=== PATIENT | female | born 1935 | race Two or more races ===

== ENCOUNTER 2024-06-15 04:14 | Inpatient (IN) | payer BC ==
[~2024-06-15] VITALS: Ht 165.1 cm; Wt 42.2 kg
[2024-06-15 07:05] LABS: CHLORIDE 101 mEq/L (98-107); SODIUM 135 mEq/L (136-145)
[2024-06-15 07:06] LABS: CALCIUM 9.3 mg/dL (8.7-10.4); CARBON DIOXIDE 26 mEq/L (21-32)
[2024-06-15 07:09] LABS: BASOPHILS % 0.5 % (0.0-2.0); HEMATOCRIT. 32.4 % (36.0-48.0); HEMOGLOBIN. 11.2 g/dL (12.0-16.0); LYMPHOCYTES % 9.7 % (20.0-50.0); MEAN CORPUSCULAR HEMOGLOBIN 32.3 pg (28.0-32.0); MEAN CORPUSCULAR HGB CONC 34.5 g/dL (31.0-37.0); MEAN CORPUSCULAR VOLUME 93.5 fL (81.0-99.0); MEAN PLATELET VOLUME 6.6 fl (7.4-10.4); NEUTROPHILS % 80.8 % (40.0-76.0); PLATELET 380 x1000/uL (130-400); RED BLOOD CELL COUNT 3.47 mill/uL (4.2-5.4); RED CELL DISTRIBUTION WIDTH 14.5 % (11.6-14.6)
[2024-06-15 07:11] LABS: CREATININE 0.5 mg/dL (0.6-1.0); GLUCOSE 107 mg/dL (70-105); UREA NITROGEN BLOOD 14 mg/dL (9-23)
[2024-06-15 07:12] LABS: TROPONIN I HIGH SENSITIVITY 13 ng/L (3.0-34)
[2024-06-15 07:13] LABS: ALANINE AMINOTRANSFERASE 18 IU/L (10-49); ASPARTATE AMINOTRANSFERASE 16 IU/L (<34); BILIRUBIN TOTAL 0.6 mg/dL (0.1-1.0); PROTEIN TOTAL 7.2 g/dL (6.0-8.3)
[2024-06-15 07:35] LABS: POTASSIUM 2.7 mEq/L (3.5-5.1)
[2024-06-15] MEDS ORDERED: POTASSIUM CHLORIDE 20MEQ TABLET SR PO ONE (08:30)
[2024-06-15] MEDS: SODIUM CHLORIDE 0.9% 1,000 ML IV ONE (09:20)
[2024-06-15] MEDS: KCL 20MEQ/100ML PREMIX 100 ML IV ONE (09:31)
[2024-06-15] MEDS: POTASSIUM CHLORIDE 20MEQ TABLET SR PO NR ×2 (10:57→13:00)
[2024-06-15] MEDS: MINERAL OIL ENEMA 133ML PR ONE (10:59)
[2024-06-15] MEDS ORDERED: ENOXAPARIN 40MG/0.4ML SYR SUBCUT SCH (12:30)
[2024-06-15] MEDS ORDERED: ACETAMINOPHEN 325MG TABLET PO PRN (12:30)
[2024-06-15] MEDS ORDERED: GUAIFENESIN 200MG/10ML SUGAR FREE UDC PO PRN (12:30)
[2024-06-15] MEDS ORDERED: MAGNESIUM/ALUMINUM HYDROXIDE/SIMETHICONE 30ML UDC PO PRN (12:30)
[2024-06-15] MEDS ORDERED: IPRATROPIUM/ALBUTEROL 0.5-3(2.5)MG/3ML NEB NEB PRN (12:30)
[2024-06-15] MEDS ORDERED: NITROGLYCERIN 0.4MG TABLET SL SL PRN (12:30)
[2024-06-15] MEDS: LOSARTAN 50 MG TABLET PO SCH (12:30)
[2024-06-15] MEDS ORDERED: DOCUSATE SODIUM 100MG CAPSULE PO PRN (12:30)
[2024-06-15] MEDS: NIFEDIPINE XL 60MG TAB PO SCH (12:38)
[2024-06-15] MEDS: ENOXAPARIN 30MG/0.3ML SYR SUBCUT SCH (15:59)
[2024-06-15 16:00] VITALS: BP 166/58; PULSE 60; RESP 20; TEMP 36.55848; O2SAT 96
[2024-06-15 16:52] LABS: IRON 35 ug/dL (50-170); TRIGLYCERIDE 84 mg/dL (0-150)
[2024-06-15 16:53] LABS: LDL CHOLESTEROL 74 mg/dL (5-100)
[2024-06-15 16:54] LABS: CHOLESTEROL 131 mg/dL (<200); HDL CHOLESTEROL 44 mg/dL (>65); TOTAL IRON BINDING CAPACITY 351 ug/dl (250-425)
[2024-06-15 16:57] LABS: FOLIC ACID (FOLATE) SERUM > 20.00 ng/mL (>5.38)
[2024-06-15 16:58] LABS: THYROID STIMULATING HORMONE 0.65 uIU/mL (0.55-4.78)
[2024-06-15 17:13] LABS: VITAMIN B12 SERUM > 2000 pg/mL (211-911)
[2024-06-15] MEDS ORDERED: POTASSIUM CHLORIDE 20 MEQ in DEXT 5% WATER 90 ML IV ONE (17:45)
[2024-06-15] MEDS ORDERED: CLON0.1T PO (18:12)
[2024-06-15] MEDS ORDERED: IBUP-1525 PO (18:12)
[2024-06-15] MEDS ORDERED: VALS160T28 PO (18:12)
[2024-06-15] MEDS ORDERED: MORP15TA8 PO (18:12)
[2024-06-15] MEDS ORDERED: ONDA-239 PO (18:12)
[2024-06-15 19:55] VITALS: PULSE 60; RESP 18; TEMP 36.55848; O2SAT 97
[2024-06-15] MEDS: FAMOTIDINE 20MG TABLET PO SCH (20:57)
[2024-06-15] MEDS: KCL 20MEQ/100ML PREMIX 100 ML IV NR (20:57)
[2024-06-15] MEDS ORDERED: ZOLPIDEM TARTRATE 5MG TABLET PO PRN (21:00)
[2024-06-15] MEDS: DEXT 5%/LACTATED RINGERS 1,000 ML IV SCH (21:00)
[2024-06-16] VITALS (8 sets, daily range): BP systolic 121–198; BP diastolic 68–83; PULSE 60–70; RESP 17–20; TEMP 35.0028–37.7808; O2SAT 95–99
[2024-06-16] MEDS: CLONIDINE 0.1MG TABLET PO PRN (06:27)
[2024-06-16 06:50] LABS: CHLORIDE 100 mEq/L (98-107); SODIUM 133 mEq/L (136-145)
[2024-06-16 06:52] LABS: CALCIUM 9.4 mg/dL (8.7-10.4); CARBON DIOXIDE 23 mEq/L (21-32)
[2024-06-16 06:54] LABS: BASOPHILS % 0.3 % (0.0-2.0); EOSINOPHILS % 0.1 % (0.0-5.0); HEMATOCRIT. 35.7 % (36.0-48.0); HEMOGLOBIN. 12.1 g/dL (12.0-16.0); LYMPHOCYTES % 12.8 % (20.0-50.0); MEAN CORPUSCULAR HEMOGLOBIN 31.5 pg (28.0-32.0); MEAN CORPUSCULAR HGB CONC 33.8 g/dL (31.0-37.0); MEAN CORPUSCULAR VOLUME 93.1 fL (81.0-99.0); MEAN PLATELET VOLUME 6.6 fl (7.4-10.4); MONOCYTES % 6.6 % (2.0-8.0); NEUTROPHILS % 80.2 % (40.0-76.0); PLATELET 444 x1000/uL (130-400); RED BLOOD CELL COUNT 3.84 mill/uL (4.2-5.4); RED CELL DISTRIBUTION WIDTH 14.3 % (11.6-14.6); WHITE BLOOD COUNT 9.8 x1000/uL (4.5-11.0)
[2024-06-16 06:57] LABS: CREATININE 0.5 mg/dL (0.6-1.0); GLUCOSE 128 mg/dL (70-105); UREA NITROGEN BLOOD 9 mg/dL (9-23)
[2024-06-16 06:58] LABS: ALANINE AMINOTRANSFERASE 16 IU/L (10-49)
[2024-06-16 06:59] LABS: ALBUMIN 3.9 g/dL (3.2-4.8); ASPARTATE AMINOTRANSFERASE 15 IU/L (<34); BILIRUBIN TOTAL 0.7 mg/dL (0.1-1.0); PHOSPHORUS 2.3 mg/dL (2.5-4.9); PROTEIN TOTAL 7.4 g/dL (6.0-8.3)
[2024-06-16] MEDS: ONDANSETRON HCL 4MG/2ML INJ IV PRN (07:25)
[2024-06-16 08:16] LABS: POTASSIUM 2.4 mEq/L (3.5-5.1)
[2024-06-16] MEDS ORDERED: POTASSIUM CHLORIDE 60 MEQ in DEXT 5% WATER 220 ML IV ONE (14:45)
[2024-06-16] MEDS: KCL 20MEQ/100ML X 2 FOR TOTAL KCL 40MEQ/200ML IV SCH (18:00)
[2024-06-16] MEDS: POTASSIUM CHLORIDE 20MEQ TABLET SR PO NR (18:07)
[2024-06-17] VITALS: BP_SYST 124; BP_DIAS 68; BP_DIAS 82; PULSE 62; RESP 17; TEMP 36.22512; O2SAT 99
[2024-06-17 04:00] VITALS: BP 120/60; PULSE 68; RESP 18; TEMP 36.55848; O2SAT 98
[2024-06-17 08:00] VITALS: BP 147/68; PULSE 70; RESP 18; RESP 20; TEMP 36.50292; O2SAT 97; O2SAT 99
[2024-06-17 11:14] LABS: CHLORIDE 97 mEq/L (98-107); SODIUM 132 mEq/L (136-145)
[2024-06-17 11:17] LABS: CARBON DIOXIDE 23 mEq/L (21-32)
[2024-06-17 11:22] LABS: CREATININE 0.5 mg/dL (0.6-1.0); GLUCOSE 141 mg/dL (70-105); UREA NITROGEN BLOOD 8 mg/dL (9-23)
[2024-06-17 11:24] LABS: PHOSPHORUS 1.5 mg/dL (2.5-4.9)
[2024-06-17] MEDS: ACETAMINOPHEN 325MG TABLET PO PRN (11:25)
[2024-06-17 11:35] LABS: POTASSIUM 2.3 mEq/L (3.5-5.1)
[2024-06-17 12:00] VITALS: BP_SYST 171; BP_SYST 175; BP_DIAS 72; BP_DIAS 78; PULSE 54; PULSE 86; RESP 18; TEMP 36.50292; O2SAT 97; O2SAT 98
[2024-06-17] MEDS: POTASSIUM CHLORIDE 20MEQ/PACKET PO NR (12:31)
[2024-06-17] MEDS ORDERED: POTASSIUM CHLORIDE IV SCH (13:15)
[2024-06-17] MEDS ORDERED: NACL IV SCH (13:15)
[2024-06-17] MEDS ORDERED: DEXT IV SCH (13:15)
[2024-06-17] MEDS: KCL 20MEQ/100ML PREMIX 100 ML IV SCH (14:31)
[2024-06-17 16:00] VITALS: BP_SYST 151; BP_SYST 164; BP_DIAS 70; BP_DIAS 74; PULSE 70; PULSE 76; RESP 19; RESP 20; TEMP 36.114; TEMP 36.3918; O2SAT 97; O2SAT 98
[2024-06-17] MEDS: MAGNESIUM 2 G PREMIX 50 ML IV NR (17:56)
[2024-06-17] MEDS ORDERED: POTASSIUM PHOSPHATE 30 MMOL in SODIUM CHLORIDE 0.9% 490 ML IV NR (18:00)
[2024-06-17 20:00] VITALS: BP 95/61; PULSE 73; RESP 19; TEMP 36.44736; O2SAT 98
[2024-06-18] VITALS: BP 97/61; PULSE 74; RESP 18; TEMP 36.28068; O2SAT 98
[2024-06-18] MEDS: POTASSIUM PHOSPHATE 30 MMOL in SODIUM CHLORIDE 0.9% 490 ML IV ONE (00:04)
[2024-06-18 04:00] VITALS: BP 168/80; PULSE 62; RESP 18; TEMP 36.44736; O2SAT 98
[2024-06-18 06:32] LABS: CHLORIDE 99 mEq/L (98-107); POTASSIUM 3.3 mEq/L (3.5-5.1); SODIUM 133 mEq/L (136-145)
[2024-06-18 06:33] LABS: CARBON DIOXIDE 24 mEq/L (21-32)
[2024-06-18 06:34] LABS: CALCIUM 8.9 mg/dL (8.7-10.4)
[2024-06-18 06:38] LABS: CREATININE 0.6 mg/dL (0.6-1.0)
[2024-06-18 06:39] LABS: GLUCOSE 115 mg/dL (70-105)
[2024-06-18 06:40] LABS: ALANINE AMINOTRANSFERASE 11 IU/L (10-49); ALBUMIN 3.7 g/dL (3.2-4.8); PHOSPHORUS 2.6 mg/dL (2.5-4.9); UREA NITROGEN BLOOD 9 mg/dL (9-23)
[2024-06-18 06:41] LABS: ASPARTATE AMINOTRANSFERASE 13 IU/L (<34)
[2024-06-18 06:42] LABS: BILIRUBIN TOTAL 0.9 mg/dL (0.1-1.0); PROTEIN TOTAL 6.9 g/dL (6.0-8.3)
[2024-06-18 07:09] LABS: BASOPHILS % 0.1 % (0.0-2.0); EOSINOPHILS % 0.2 % (0.0-5.0); HEMATOCRIT. 39.9 % (36.0-48.0); HEMOGLOBIN. 13.3 g/dL (12.0-16.0); LYMPHOCYTES % 10.8 % (20.0-50.0); MEAN CORPUSCULAR HEMOGLOBIN 31.3 pg (28.0-32.0); MEAN CORPUSCULAR HGB CONC 33.2 g/dL (31.0-37.0); MEAN PLATELET VOLUME 6.6 fl (7.4-10.4); MONOCYTES % 6.7 % (2.0-8.0); NEUTROPHILS % 82.2 % (40.0-76.0); PLATELET 470 x1000/uL (130-400); RED BLOOD CELL COUNT 4.24 mill/uL (4.2-5.4); RED CELL DISTRIBUTION WIDTH 14.1 % (11.6-14.6); WHITE BLOOD COUNT 14.3 x1000/uL (4.5-11.0)
[2024-06-18 08:00] VITALS: BP 164/81; PULSE 63; RESP 18; TEMP 36.55848; O2SAT 97
[2024-06-18] MEDS: POTASSIUM CHLORIDE 20MEQ/PACKET PO NR (09:24)
[2024-06-18 12:00] VITALS: BP 116/79; PULSE 72; RESP 18; TEMP 36.50292; O2SAT 97
[2024-06-18 12:56] VITALS: BP 116/79; PULSE 72; TEMP 97.8; O2SAT 97
== END 2024-06-18 15:57 | disposition hospice, home (50) | DRG 392 ==
LOC: ER 04:14 → 5WST 09:42 → EDBEDREQ 09:43 → EDBEDREQTM 09:43 → EDBEDREQ 09:50 → 8WST 17:05
PROVIDERS: ADMIT Internal Medicine; ATTEND Internal Medicine
DX: K59.00 Constipation, unspecified (principal); E87.1 Hypo-osmolality and hyponatremia; I16.1 Hypertensive emergency; R64 Cachexia; Z68.1 Body mass index [BMI] 19.9 or less, adult; R10.32 Left lower quadrant pain; E87.6 Hypokalemia; D63.8 Anemia in other chronic diseases classified elsewhere; I10 Essential (primary) hypertension; Z85.118 Personal history of other malignant neoplasm of bronchus and lung
CPT/HCPCS: 36415; 74176; 80048; 80053; 80061; 82607; 82746; 83036; 83540; 83550; 83605; 83735; 83880; 84100; 84145; 84439; 84443; 84484; 85025; 93005; 93306; 93970; 97166; 99285; A6261; J1650; J2405; J3475; J3480; J3490; J7030; J7040; J7121